=== PATIENT | female | born 1990 | race Caucasian/White ===

== ENCOUNTER 2017-03-21 11:24 | Inpatient (IN) | payer OTHER ==
[~2017-03-21] VITALS: Ht 162.6 cm; Wt 61.7 kg
[~2017-03-21 11:24] MED LIST: ATIVAN1 MG PO; CLEOCIN300 MG PO; DAILY VALUE1 EACH PO; DAY TIME COLD1 EACH; FLAGYL500 MG PO; FLONASE16 G1 BOTH NARES; IBUPROFEN800 MG PO; KEFLEX500 MG PO; MOTRIN800 MG PO; MUCUS RELIEF600 MG PO; PERCOCET 5/31 TABLET PO; PRENATAL TABLE1 EAC3 PO; PROPRANOLOL HCL10 MG PO; TESSALON PERLE100 MG PO; TYLENOL EXTRA500 MG PO; XANAX0.25 MG PO; ZOFRAN ODT4 MG PO
[2017-03-21 12:11] LABS: EOSINOPHIL (%) 9.2 % (0-5); EOSINOPHIL COUNT 0.6 K/uL (0-0.3); HEMATOCRIT 37.8 % (36.0-46.0); IMMATURE GRANULOCYTE (%) 0.2 % (0.0-0.7); INSTRUMENT ABS NEUTROPHIL CT 3.1 K/uL; MCH 30.2 PG (29.0-34.0); MCHC 33.9 G/DL (30.0-36.0); MCV 89.2 FL (83-99); MEAN PLAT.VOLUME 9.4 uM^3 (9.5-12.4); MONOCYTE (%) 5.7 % (3-12); MONOCYTE COUNT 0.4 K/uL (0-0.8); NEUTROPHIL (%) 51.1 % (45-76); NEUTROPHIL COUNT 3.1 K/uL (1.8-6.4); PLATELET COUNT 232 K/uL (156-360); RBC DIS.WIDTH-CV 12.6 % (11.8-14.6); RBC DIS.WIDTH-SD 41.3 % (39-53); RED BLOOD COUNT 4.24 M/uL (3.80-5.20); WHITE BLOOD COUNT 6.1 K/uL (4.1-10.2)
[2017-03-21 12:21] LABS: CHLORIDE 105 mEq/L (99-109); POTASSIUM 3.7 mEq/L (3.7-5.4); SODIUM 139 mEq/L (136-147)
[2017-03-21 12:23] LABS: GLUCOSE 134 mg/dL (70-99)
[2017-03-21 12:24] LABS: ANION GAP 9 MEQ/L (2-14)
[2017-03-21 12:26] LABS: SERUM ETHYL ALCOHOL < 10 mg/dL
[2017-03-21 12:27] LABS: GFR ESTIMATE (CALCULATED) > 59 mL/min/
[2017-03-21 12:28] LABS: UREA NITROGEN (BUN) 5 mg/dL (9-23)
[2017-03-21 12:35] LABS: QUANTITATIVE HCG < 4.0 MIU/ML
[2017-03-21 16:13] VITALS: BP 141/89
[2017-03-21] MEDS ORDERED: GUMMI BEAR MUL1 EACH PO (16:38)
[2017-03-22 08:02] VITALS: BP 105/59
== END 2017-03-22 10:20 | disposition home or self-care (01) | DRG 897 ==
LOC: EME 11:24 → EDOF 14:20 → 1WEST 14:20 → ENRESERV 16:07 → 1WEST 16:08
PROVIDERS: Emergency Medicine
DX: F11.20 Opioid dependence, uncomplicated (principal); F43.23 Adjustment disorder with mixed anxiety and depressed mood; F14.90 Cocaine use, unspecified, uncomplicated; F43.10 Post-traumatic stress disorder, unspecified; F17.200 Nicotine dependence, unspecified, uncomplicated; Z65.3 Problems related to other legal circumstances
CPT/HCPCS: 80048; 81003; 84702; 85025; 90839; 99281; 99285; G0480; Q0177